=== PATIENT | female | born 1950 | race Caucasian/White ===

== ENCOUNTER → 2017-11-21 16:19 | Outpatient (CLI) | payer OTHER, SELFPAY | PROVIDERS: PCP Internal Medicine; Visit Provider Internal Medicine | DX: Z53.9 Procedure and treatment not carried out, unspecified reason (principal) ==

== ENCOUNTER → 2017-11-21 16:36 | Outpatient (CLI) | payer OTHER, SELFPAY ==
[2017-11-21 17:50] LABS: Add Manual Diff / Slide Review NO; Basophils Percent Auto 0.5 % (0-2); Eosinophils Percent Auto 1.9 % (2-4); Hematocrit 40.9 % (36-46); Hemoglobin 13.7 g/dL (12.0-16.0); Lymphocytes Percent Auto 20.4 % (25-40); Mean Corpuscular HGB Conc 33.6 % (30-36); Mean Corpuscular Hemoglobin 30.1 PG (26-34); Mean Corpuscular Volume 89.6 fL (80-100); Monocytes Percent Auto 11.1 % (3-14); Neutrophils Absolute Auto 2900 /uL (3000-5900); Neutrophils Percent Auto 66.1 % (50-75); Platelet Count 206 X10^3/uL (150-400); Red Blood Cell Count 4.56 X10^6/uL (4.0-5.2); Red Cell Distribution Width 14.6 % (11.6-14.8); White Blood Cell Count 4.4 X10^3/uL (4.5-11.0)
[2017-11-21 17:58] LABS: Alanine Aminotransferase 30 IU/L (9-52); Albumin 4.6 g/dL (3.5-5.0); Albumin Globulin Ratio 1.2 (1.0-2.8); Alkaline Phosphatase 80 U/L (38-126); Aspartate Aminotransferase 28 IU/L (14-36); BUN Creatinine Ratio 18.8 (6-22); Bilirubin Total 0.7 mg/dL (0.2-1.3); Blood Urea Nitrogen 15 mg/dL (7-17); C-Reactive Protein Quant < 0.5 mg/dL (<1.0); Calcium 9.6 mg/dL (8.4-10.2); Carbon Dioxide 32 mmol/L (22-32); Chloride 98 mmol/L (98-107); Estimated Glomerular Filt Rate > 60.0 mL/min (>60); Globulin 3.8 g/dL (1.7-4.1); Glucose 91 mg/dL (80-110); HEMOLYSIS 15 (0-50); Potassium 3.5 mmol/L (3.4-5.1); Sodium 140 mmol/L (137-145); Total Protein 8.4 g/dL (6.3-8.2)
[2017-11-21 18:18] LABS: Free T4, Direct Thyroxine 0.99 ng/dL (0.78-2.19)
[2017-11-21 18:32] LABS: Thyroid Stimulating Hormone 7.52 uIU/mL (0.47-4.68)
== END ==
PROVIDERS: PCP Internal Medicine; Visit Provider Internal Medicine
DX: E89.0 Postprocedural hypothyroidism (principal); I10 Essential (primary) hypertension; K52.9 Noninfective gastroenteritis and colitis, unspecified
CPT/HCPCS: 36415; 80053; 84439; 84443; 85025; 86140

== ENCOUNTER → 2017-11-22 11:57 | Outpatient (CLI) | payer OTHER, SELFPAY ==
[2017-11-22 14:00] LABS: Adenovirus F 40/41 Not Detected (Not Detect); Astrovirus Not Detected (Not Detect); Campylobacter Not Detected (Not Detect); Clostridium difficile toxin AB Not Detected (Not Detect); Cryptosporidium Not Detected (Not Detect); Cyclospora cayetanensis Not Detected (Not Detect); Entamoeba histolytica Not Detected (Not Detect); Enteroaggregative E.coli Not Detected (Not Detect); Enteropathogenic E.coli Not Detected (Not Detect); Enterotoxigenic E.coli It/st Not Detected (Not Detect); Giardia lamblia Not Detected (Not Detect); Norovirus GI/GII Not Detected (Not Detect); Plesiomonsa shigelloides Not Detected (Not Detect); Rotavirus A Not Detected (Not Detect); Salmonella Not Detected (Not Detect); Shiga-like toxin-prod E.coli Not Detected (Not Detect); Shigella/Enteroinvasive E.coli Not Detected (Not Detect); Vibrio Not Detected (Not Detect); Vibrio cholerae Not Detected (Not Detect); Yersinia enterocolitica Not Detected (Not Detect)
== END ==
PROVIDERS: PCP Internal Medicine; Visit Provider Internal Medicine
DX: E89.0 Postprocedural hypothyroidism (principal); I10 Essential (primary) hypertension; K52.9 Noninfective gastroenteritis and colitis, unspecified
CPT/HCPCS: 87507

== ENCOUNTER → 2018-05-28 10:25 | Outpatient (CLI) | payer OTHER, SELFPAY ==
[2018-05-28 11:30] LABS: Alanine Aminotransferase 35 IU/L (9-52); Albumin 4.6 g/dL (3.5-5.0); Albumin Globulin Ratio 1.2 (1.0-2.8); Alkaline Phosphatase 69 U/L (38-126); Aspartate Aminotransferase 29 IU/L (14-36); BUN Creatinine Ratio 18.8 (6-22); Bilirubin Total 0.4 mg/dL (0.2-1.3); Blood Urea Nitrogen 15 mg/dL (7-17); Calcium 9.7 mg/dL (8.4-10.2); Carbon Dioxide 29 mmol/L (22-32); Chloride 92 mmol/L (98-107); Estimated Glomerular Filt Rate > 60.0 mL/min (>60); Globulin 3.7 g/dL (1.7-4.1); Glucose 93 mg/dL (80-110); HEMOLYSIS < 15 (0-50); Potassium 3.7 mmol/L (3.4-5.1); Sodium 134 mmol/L (137-145); Total Protein 8.3 g/dL (6.3-8.2)
[2018-05-28 12:46] LABS: TSH w/ Reflex to FT4 0.24 uIU/mL (0.47-4.68)
[2018-05-28 13:16] LABS: Free T4, Direct Thyroxine 1.24 ng/dL (0.78-2.19)
== END ==
PROVIDERS: PCP Internal Medicine; Visit Provider Internal Medicine
DX: E89.0 Postprocedural hypothyroidism (principal); I10 Essential (primary) hypertension; K52.9 Noninfective gastroenteritis and colitis, unspecified
CPT/HCPCS: 36415; 80053; 84439; 84443

== ENCOUNTER → 2018-06-19 09:28 | Outpatient (CLI) | payer OTHER, SELFPAY ==
--- NOTE | 2018-06-19 | DI.MG.S_ITS ---
BILATERAL DIGITAL SCREENING MAMMOGRAM 3D/2D WITH CAD: 06/19/2018 CLINICAL: Routine screening. Personal history of bilateral breast cancer. Family history of breast cancer. Comparison is made to exams dated: 06/18/2017 mammogram, 03/14/2016 mammogram, and 03/09/2015 mammogram - [facility]. There are scattered fibroglandular elements in both breasts. Current study was also evaluated with a Computer Aided Detection (CAD) system. There are benign post operative findings in both breasts. There also are benign calcifications in both breasts. No significant masses, calcifications, or other findings are seen in either breast. There has been no significant interval change. IMPRESSION: There is no mammographic evidence of malignancy. A 1 year screening mammogram is recommended. This exam was interpreted at Station ID: [id number]. NOTE: For mammograms, a report in lay terms will be sent to the patient. Approximately 15% of breast malignancies will not be visualized mammographically. In the management of a palpable breast mass, a negative mammogram must not discourage biopsy of a clinically suspicious lesion. Electronically Signed By: Drew hernandez/kendrick:06/19/2018 11:59:35 letter sent: Normal Exam ACR BI-RADS Category 2: Benign Finding(s) 3342F
== END ==
PROVIDERS: PCP Internal Medicine
DX: Z12.31 Encounter for screening mammogram for malignant neoplasm of breast (principal); Z85.3 Personal history of malignant neoplasm of breast; Z80.3 Family history of malignant neoplasm of breast
CPT/HCPCS: 77063; 77067

== ENCOUNTER → 2019-09-04 11:09 | Outpatient (CLI) | payer OTHER, SELFPAY ==
--- NOTE | 2019-09-04 | DI.MG.S_ITS ---
BILATERAL DIGITAL SCREENING MAMMOGRAM 3D/2D WITH CAD POST LUMPECTOMY: 09/04/2019 CLINICAL: Routine screening. History of breast cancer. Comparison is made to exams dated: 06/19/2018 mammogram, 06/18/2017 mammogram, and 03/14/2016 mammogram - [facility]. There are scattered fibroglandular elements in both breasts. Current study was also evaluated with a Computer Aided Detection (CAD) system. There are benign calcifications in both breasts. There also are benign post operative findings in both breasts. No significant masses, calcifications, or other findings are seen in either breast. There has been no significant interval change. IMPRESSION: There is no mammographic evidence of malignancy. A 1 year screening mammogram is recommended. This exam was interpreted at Station ID: [id number]. NOTE: For mammograms, a report in lay terms will be sent to the patient. Approximately 15% of breast malignancies will not be visualized mammographically. In the management of a palpable breast mass, a negative mammogram must not discourage biopsy of a clinically suspicious lesion. Electronically Signed By: Drew hernandez/kendrick:09/07/2019 08:58:21 copy to: Corey Simental letter sent: Normal Exam ACR BI-RADS Category 2: Benign Finding(s) 3342F
== END ==
PROVIDERS: PCP Internal Medicine; Referring Provider Internal Medicine; Visit Provider Internal Medicine
DX: Z12.31 Encounter for screening mammogram for malignant neoplasm of breast (principal); Z85.3 Personal history of malignant neoplasm of breast
CPT/HCPCS: 77063; 77067

== ENCOUNTER → 2019-12-17 14:15 | Outpatient (CLI) | payer OTHER, SELFPAY ==
[2019-12-17 16:04] LABS: Add Manual Diff / Slide Review NO; Basophils Absolute Auto 0 /uL (0-100); Basophils Percent Auto 0.8 % (0-2); Eosinophils Absolute Auto 100 /uL (0-450); Eosinophils Percent Auto 2.4 % (2-4); Hematocrit 37.8 % (36-46); Hemoglobin 12.5 g/dL (12.0-16.0); Lymphocytes Absolute Auto 1400 /uL (1100-4500); Lymphocytes Percent Auto 27.7 % (25-40); Mean Corpuscular Hemoglobin 30.7 PG (26-34); Monocytes Absolute Auto 600 /uL (0-900); Monocytes Percent Auto 11.7 % (3-14); Neutrophils Absolute Auto 2800 /uL (1500-7000); Neutrophils Percent Auto 57.4 % (50-75); Platelet Count 198 X10^3/uL (150-400); Red Blood Cell Count 4.06 X10^6/uL (4.0-5.2); Red Cell Distribution Width 13.4 % (11.6-14.8); White Blood Cell Count 4.9 X10^3/uL (4.5-11.0)
[2019-12-17 16:34] LABS: Alanine Aminotransferase 28 IU/L (<35); Albumin 4.3 g/dL (3.5-5.0); Albumin Globulin Ratio 1.2 (1.0-2.8); Alkaline Phosphatase 64 U/L (38-126); Aspartate Aminotransferase 29 IU/L (14-36); BUN Creatinine Ratio 29.3 (6-22); Bilirubin Total 0.3 mg/dL (0.2-1.3); Blood Urea Nitrogen 24 mg/dL (7-17); Calcium 9.7 mg/dL (8.4-10.2); Carbon Dioxide 33 mmol/L (22-32); Chloride 99 mmol/L (98-107); Estimated Glomerular Filt Rate > 60.0 mL/min (>60); Globulin 3.5 g/dL (1.7-4.1); Glucose 108 mg/dL (80-110); HEMOLYSIS < 15 (0-50); Potassium 4.2 mmol/L (3.4-5.1); Sodium 139 mmol/L (137-145); Total Protein 7.8 g/dL (6.3-8.2)
[2019-12-17 16:38] LABS: C-Reactive Protein Quant < 0.5 mg/dL (<1.0)
[2019-12-17 16:51] LABS: Free T4, Direct Thyroxine 0.98 ng/dL (0.78-2.19)
[2019-12-17 16:54] LABS: Erythrocyte Sedimentation Rate 19 MM/HR (0-20)
[2019-12-17 17:05] LABS: Thyroid Stimulating Hormone 8.67 uIU/mL (0.47-4.68)
== END ==
PROVIDERS: PCP Internal Medicine; Referring Provider Internal Medicine; Visit Provider Internal Medicine
DX: E89.0 Postprocedural hypothyroidism (principal); I10 Essential (primary) hypertension
CPT/HCPCS: 36415; 80053; 84439; 84443; 85025; 85651; 86140

== ENCOUNTER → 2020-02-16 10:16 | Outpatient (CLI) | payer OTHER, SELFPAY ==
[2020-02-16 11:29] LABS: Free T4, Direct Thyroxine 1.21 ng/dL (0.78-2.19)
[2020-02-16 11:43] LABS: Thyroid Stimulating Hormone 1.04 uIU/mL (0.47-4.68)
== END ==
PROVIDERS: PCP Internal Medicine; Referring Provider Internal Medicine; Visit Provider Internal Medicine
DX: E89.0 Postprocedural hypothyroidism (principal)
CPT/HCPCS: 36415; 84439; 84443

== ENCOUNTER → 2020-09-22 14:01 | Outpatient (CLI) | payer OTHER, SELFPAY ==
--- NOTE | 2020-09-22 | DI.MG.S_ITS ---
BILATERAL DIGITAL SCREENING MAMMOGRAM 3D/2D WITH CAD: 09/22/2020 CLINICAL: Routine screening. Personal history of bilateral breast cancer. Family history of breast cancer. Comparison is made to exams dated: 09/04/2019 mammogram, 06/19/2018 mammogram, and 06/18/2017 mammogram - [facility]. There are scattered fibroglandular elements in both breasts. Current study was also evaluated with a Computer Aided Detection (CAD) system. There are benign calcifications in both breasts. There also are benign post operative findings in both breasts. No significant masses, calcifications, or other findings are seen in either breast. There has been no significant interval change. IMPRESSION: BENIGN There is no mammographic evidence of malignancy. A 1 year screening mammogram is recommended. This exam was interpreted at Station ID: [id number]. NOTE: For mammograms, a report in lay terms will be sent to the patient. Approximately 15% of breast malignancies will not be visualized mammographically. In the management of a palpable breast mass, a negative mammogram must not discourage biopsy of a clinically suspicious lesion. Electronically Signed By: Drew hernandez/kendrick:09/22/2020 14:55:07 copy to: Corey Simental letter sent: Normal Exam ACR BI-RADS Category 2: Benign Finding(s) 3342F
== END ==
PROVIDERS: PCP Internal Medicine; Referring Provider Internal Medicine; Visit Provider Internal Medicine
DX: Z12.31 Encounter for screening mammogram for malignant neoplasm of breast (principal); Z85.3 Personal history of malignant neoplasm of breast; Z80.3 Family history of malignant neoplasm of breast
CPT/HCPCS: 77063; 77067

== ENCOUNTER → 2021-09-01 08:20 | Outpatient (CLI) | payer OTHER, SELFPAY ==
[2021-09-01 10:32] LABS: Thyroid Stimulating Hormone 0.041 uIU/mL (0.47-4.68)
[2021-09-01 10:36] LABS: Alanine Aminotransferase 19 IU/L (<35); Aspartate Aminotransferase 25 IU/L (14-36); BUN Creatinine Ratio 21.5 (6-22); Bilirubin Total 0.5 mg/dL (0.2-1.3); Blood Urea Nitrogen 14 mg/dL (7-17); Calcium 9.2 mg/dL (8.4-10.2); Carbon Dioxide 27 mmol/L (22-32); Chloride 100 mmol/L (98-107); Estimated Glomerular Filt Rate > 60 mL/min (>60); Glucose 97 mg/dL (80-110); Potassium 4.1 mmol/L (3.4-5.1); Sodium 136 mmol/L (137-145); Total Protein 7.5 g/dL (6.3-8.2)
[2021-09-01 10:37] LABS: Albumin 3.9 g/dL (3.5-5.0); Albumin Globulin Ratio 1.1 (1.0-2.8); Alkaline Phosphatase 59 U/L (38-126); Cholesterol 162 mg/dL (140-199); Globulin 3.6 g/dL (1.7-4.1); HDL Cholesterol 73 mg/dL (40-60); HEMOLYSIS < 15 (0-50); LDL Cholesterol Calculated 78 mg/dL (<100); Triglycerides 54 mg/dL (35-150)
[2021-09-03 15:33] LABS: Free T3, Triiodothyronine Free 3.42 pg/mL (2.77-5.27); Free T4, Direct Thyroxine 1.69 ng/dL (0.78-2.19)
== END ==
PROVIDERS: PCP Internal Medicine; Referring Provider Internal Medicine; Visit Provider Internal Medicine
DX: E89.0 Postprocedural hypothyroidism (principal); I10 Essential (primary) hypertension; K52.9 Noninfective gastroenteritis and colitis, unspecified
CPT/HCPCS: 36415; 80053; 80061; 84439; 84443; 84481

== ENCOUNTER → 2021-10-14 09:10 | Outpatient (CLI) | payer OTHER, SELFPAY ==
--- NOTE | 2021-10-14 09:10 | DI.MG.S_ITS ---
BILATERAL DIGITAL SCREENING MAMMOGRAM 3D/2D WITH CAD: 10/14/2021 CLINICAL: Routine screening. Personal history of bilateral breast cancer. Family history of breast cancer. Comparison is made to exams dated: 09/22/2020 mammogram, 09/04/2019 mammogram, and 06/19/2018 mammogram - [facility]. There are scattered fibroglandular elements in both breasts. Current study was also evaluated with a Computer Aided Detection (CAD) system. There are benign calcifications in both breasts. There also are benign post operative findings in both breasts. No significant masses, calcifications, or other findings are seen in either breast. There has been no significant interval change. IMPRESSION: BENIGN There is no mammographic evidence of malignancy. A 1 year screening mammogram is recommended. This exam was interpreted at Station ID: [id number]. NOTE: For mammograms, a report in lay terms will be sent to the patient. Approximately 15% of breast malignancies will not be visualized mammographically. In the management of a palpable breast mass, a negative mammogram must not discourage biopsy of a clinically suspicious lesion. Electronically Signed By: Stefano Pardo M.D., jr/kendrick:10/16/2021 12:57:26 copy to: Corey Simental letter sent: Normal Exam ACR BI-RADS Category 2: Benign Finding(s) 3342F
== END ==
PROVIDERS: PCP Internal Medicine; Referring Provider Internal Medicine; Visit Provider Internal Medicine
DX: Z12.31 Encounter for screening mammogram for malignant neoplasm of breast (principal); Z85.3 Personal history of malignant neoplasm of breast; Z80.3 Family history of malignant neoplasm of breast
CPT/HCPCS: 77063; 77067

== ENCOUNTER → 2022-04-09 10:14 | Outpatient (CLI) | payer OTHER, SELFPAY ==
--- NOTE | 2022-04-09 10:15 | DI.RAD.S_ITS ---
PROCEDURE: XR HIP W PEL IF DONE RT 2V INDICATIONS: Right hip pain TECHNIQUE: AP pelvis with lateral view(s) of the right hip(s). COMPARISON: None. FINDINGS: Bones: No fractures or dislocations. Pelvic ring appears intact. Mild bilateral hip joint space narrowing. Acetabular roof sclerosis. No suspicious bony lesions. Soft tissues: The visualized bowel gas pattern is normal. No suspicious soft tissue calcifications. IMPRESSION: Mild bilateral hip DJD. Dictated by: Juan F Landaverde M.D. on 04/09/2022 at 12:31 Approved by: Juan F Landaverde M.D. on 04/09/2022 at 12:32
== END ==
PROVIDERS: PCP Internal Medicine; Referring Provider Nurse Practitioner Family; Visit Provider Nurse Practitioner Family
DX: M16.0 Bilateral primary osteoarthritis of hip (principal); M25.551 Pain in right hip
CPT/HCPCS: 73502

== ENCOUNTER → 2022-05-02 10:14 | Outpatient (CLI) | payer OTHER, SELFPAY | PROVIDERS: PCP Internal Medicine; Referring Provider Internal Medicine; Visit Provider Internal Medicine | DX: Z78.0 Asymptomatic menopausal state (principal); M81.0 Age-related osteoporosis without current pathological fracture; Z13.820 Encounter for screening for osteoporosis; Z92.23 Personal history of estrogen therapy | CPT/HCPCS: 77080 ==

== ENCOUNTER → 2022-11-08 16:23 | Outpatient (CLI) | payer OTHER, SELFPAY ==
[2022-11-08 17:34] LABS: Alanine Aminotransferase 29 IU/L (<35); Albumin 4.5 g/dL (3.5-5.0); Albumin Globulin Ratio 1.1 (1.0-2.8); Alkaline Phosphatase 68 U/L (38-126); Aspartate Aminotransferase 29 IU/L (14-36); BUN Creatinine Ratio 20.8 (6-22); Bilirubin Total 0.3 mg/dL (0.2-1.3); Blood Urea Nitrogen 15 mg/dL (7-17); Calcium 9.5 mg/dL (8.4-10.2); Carbon Dioxide 29 mmol/L (22-32); Chloride 97 mmol/L (98-107); Estimated Glomerular Filt Rate > 60 mL/min (>60); Glucose 94 mg/dL (80-110); HEMOLYSIS < 15 (0-50); Potassium 3.7 mmol/L (3.4-5.1); Sodium 135 mmol/L (137-145); Total Protein 8.5 g/dL (6.3-8.2)
[2022-11-08 17:51] LABS: Free T4, Direct Thyroxine 1.17 ng/dL (0.78-2.19)
[2022-11-08 18:05] LABS: Thyroid Stimulating Hormone 4.97 uIU/mL (0.47-4.68)
[2022-11-10 02:22] LABS: Free T3, Triiodothyronine Free 3.14 pg/mL (2.77-5.27)
== END ==
PROVIDERS: PCP Internal Medicine; Referring Provider Internal Medicine; Visit Provider Internal Medicine
DX: C73 Malignant neoplasm of thyroid gland (principal); E89.0 Postprocedural hypothyroidism; I10 Essential (primary) hypertension
CPT/HCPCS: 80053; 84439; 84443; 84481

== ENCOUNTER → 2022-12-11 13:11 | Outpatient (CLI) | payer OTHER, SELFPAY ==
--- NOTE | 2022-12-11 13:12 | DI.MG.S_ITS ---
BILATERAL DIGITAL DIAGNOSTIC MAMMOGRAM 3D/2D: 12/11/2022 CLINICAL: Breast pain. Breast cancer. Comparison is made to exams dated: 10/14/2021 mammogram, 09/22/2020 mammogram, and 09/04/2019 mammogram - [facility]. There are scattered areas of fibroglandular density in both breasts (category b / 25%-50% glandular tissue). There are stable benign surgical clips, tiny central area of calcified fat necrosis, and post surgical scar in the right breast at 9 o'clock in the posterior depth that correlate with reported pain. There also are stable benign surgical clips, large area of calcified fat necrosis, and post surgical scar in the left breast in the upper outer quadrant. No significant masses, calcifications, or other findings are seen in either breast. No findings to correspond to the left breast skin thickening and discomfort from the lower inner aspect to the left axilla. IMPRESSION: INCOMPLETE: NEEDS ADDITIONAL IMAGING EVALUATION Mammograms are stable bilaterally. There is no abnormality seen in the left breast to correspond with the pain and skin thickening throughout the left breast. No changes to right breast surgical area which is now painful per patient. Ultrasound is recommended for full evaluation of this area. This was performed immediately following this exam. This exam was interpreted at Station ID: [id number]. NOTE: For mammograms, a report in lay terms will be sent to the patient. Approximately 15% of breast malignancies will not be visualized mammographically. In the management of a palpable breast mass, a negative mammogram must not discourage biopsy of a clinically suspicious lesion. Electronically Signed By: Yohana adair/:12/12/2022 11:43:21 Entry: - 12/12/2022 11:43:21 ACR BI-RADS Category 0: Incomplete [id number]
--- NOTE | 2022-12-11 13:12 | DI.US.S_ITS ---
LIMITED ULTRASOUND OF RIGHT BREAST: 12/11/2022 CLINICAL: Diffuse right breast pain. Comparison is made to exams dated: 12/11/2022 mammogram, 10/14/2021 mammogram, 09/22/2020 mammogram, 09/04/2019 mammogram, 06/19/2018 mammogram, and 06/18/2017 mammogram - [facility]. Color flow ultrasound of the right breast 9 o'clock region was performed. Pemberton scale images of the real-time examination were reviewed. Expected tissue changes of lumpectomy site and scarring in the 9:00 right breast posterior depth at the are of indicated pain. No fluid collections or suspicious masses. No findings in the right axilla. IMPRESSION: NEGATIVE Other than stable, chronic surgical change, there is no sonographic correlate to the patient's pain and no evidence of malignancy. Return to annual mammogram screening schedule is recommended. Findings and recommendations were conveyed to the patient at time of exam. This exam was interpreted at Station ID: [id number]. Electronically Signed By: Yohana adair/:12/11/2022 15:07:05 letter sent: Normal Exam Ultrasound BI-RADS: 1 Negative
== END ==
PROVIDERS: PCP Internal Medicine; Referring Provider Internal Medicine; Visit Provider Internal Medicine
DX: R92.2 Inconclusive mammogram; N64.4 Mastodynia; Z85.3 Personal history of malignant neoplasm of breast
CPT/HCPCS: 76642; 77066; G0279

== ENCOUNTER → 2023-07-04 16:49 | Outpatient (CLI) | payer OTHER, SELFPAY ==
--- NOTE | 2023-07-04 16:51 | DI.RAD.S_ITS ---
PROCEDURE: XR THORACIC SPINE 3V INDICATIONS: back pain TECHNIQUE: 3 views of the thoracic spine were acquired. COMPARISON: None. FINDINGS: Bones: No fractures or dislocations. No suspicious bony lesions. 12 pairs of ribs are noted, and appear intact where visualized. Multilevel degenerative disc space narrowing is present with small anterior osteophytes. Soft tissues: No paravertebral stripe thickening. IMPRESSION: Multilevel degenerative disc space narrowing. Dictated by: Betzaida Blanchard M.D. on 07/05/2023 at 13:58 Approved by: Betzaida Blanchard M.D. on 07/05/2023 at 14:00
--- NOTE | 2023-07-04 16:51 | DI.RAD.S_ITS ---
PROCEDURE: XR CHEST 2V INDICATIONS: cough TECHNIQUE: 2 views of the chest were acquired. COMPARISON: [facility], , CHEST 2 VIEW, 04/07/2015, 10:02. FINDINGS: Surgical changes and devices: None. Lungs and pleura: Focal calcification-developed since 2016 overlying the left base. Mediastinum: Mediastinal contours are normal. Heart size is normal. Bones and chest wall: No suspicious bony abnormalities. Soft tissues appear unremarkable. IMPRESSION: Calcification overlying the right base compared to prior exam. Etiology is indeterminate on the basis of this exam. It is noted does not appear to be consistent with standard calcified granuloma. This may be related to focus of infection or inflammation. Further evaluation with CT is recommended. Dictated by: Betzaida Blanchard M.D. on 07/05/2023 at 13:52 Approved by: Betzaida Blanchard M.D. on 07/05/2023 at 13:58
[2023-07-04 17:57] LABS: Add Manual Diff / Slide Review NO; Basophils Absolute Auto 0 /uL (0-100); Basophils Percent Auto 0.6 % (0-2); Eosinophils Absolute Auto 100 /uL (0-450); Hemoglobin 11.3 g/dL (12.0-16.0); Lymphocytes Absolute Auto 1600 /uL (1100-4500); Lymphocytes Percent Auto 34.5 % (25-40); Mean Corpuscular HGB Conc 33.3 % (30-36); Mean Corpuscular Hemoglobin 30.2 PG (26-34); Mean Corpuscular Volume 90.6 fL (80-100); Monocytes Absolute Auto 500 /uL (0-900); Monocytes Percent Auto 10.4 % (3-14); Neutrophils Absolute Auto 2500 /uL (1500-7000); Neutrophils Percent Auto 52.5 % (50-75); Platelet Count 228 X10^3/uL (150-400); Red Blood Cell Count 3.75 X10^6/uL (4.0-5.2); Red Cell Distribution Width 13.9 % (11.6-14.8); White Blood Cell Count 4.7 X10^3/uL (4.5-11.0)
[2023-07-04 18:12] LABS: Alanine Aminotransferase 42 IU/L (<35); Albumin 4.5 g/dL (3.5-5.0); Albumin Globulin Ratio 1.2 (1.0-2.8); Alkaline Phosphatase 61 U/L (38-126); Aspartate Aminotransferase 32 IU/L (14-36); Bilirubin Total 0.4 mg/dL (0.2-1.3); Blood Urea Nitrogen 21 mg/dL (7-17); Calcium 9.4 mg/dL (8.4-10.2); Carbon Dioxide 30 mmol/L (22-32); Chloride 100 mmol/L (98-107); Estimated Glomerular Filt Rate > 60 mL/min (>60); Globulin 3.9 g/dL (1.7-4.1); Glucose 93 mg/dL (80-110); HEMOLYSIS 15 (0-50); Potassium 3.5 mmol/L (3.4-5.1); Sodium 137 mmol/L (137-145); Total Protein 8.4 g/dL (6.3-8.2)
== END ==
LOC: RAD 16:50
PROVIDERS: PCP Internal Medicine; Referring Provider Internal Medicine; Visit Provider Internal Medicine
DX: M48.04 Spinal stenosis, thoracic region (principal); R05.9 Cough, unspecified; R06.00 Dyspnea, unspecified; M54.9 Dorsalgia, unspecified
CPT/HCPCS: 36415; 71046; 72072; 80053; 84443; 85025

== ENCOUNTER → 2023-07-16 08:58 | Outpatient (CLI) | payer OTHER, SELFPAY ==
--- NOTE | 2023-07-16 09:00 | DI.CT.S_ITS ---
PROCEDURE: CT CHEST W CON INDICATIONS: Abnormal Chest Xray TECHNIQUE: After the administration of intravenous contrast, 5 mm thick sections acquired from the pulmonary apices to the posterior costophrenic angles. 1 mm axial lung, 5 mm thick coronal and sagittal reformats and 7 mm axial MIP were acquired. For radiation dose reduction, the following was used: automated exposure control, adjustment of mA and/or kV according to patient size. COMPARISON: [facility], , XR CHEST 2V, 07/04/2023, 16:57. FINDINGS: Image quality: Diagnostic. Lower Neck: No enlarged lymph nodes. Thyroid: Thyroidectomy Axillae: No enlarged lymph nodes. Chest Wall: Corresponding with the prior chest x-ray and prior mammogram 12/11/2012, there is of ovoid peripherally calcified necrosis in the left breast associated with prior lumpectomy and surgical clips in the left axilla. Bones: T4 wedge-shaped pathologic compression fracture with large paravertebral soft tissue component as well as large ventral epidural soft tissue component resulting in severe central stenosis. Lungs and Pleura: No pneumothorax or pleural effusions. No consolidation or suspicious nodules. Heart: Heart size is normal. No pericardial effusion. Thoracic Vessels: The aorta and pulmonary arteries demonstrate normal size. Mediastinum and Amry: No enlarged lymph nodes. Esophagus: No wall thickening. No hiatal hernia. Upper Abdomen: Visualized upper abdomen solid organs and bowel loops appear normal. IMPRESSION: Pathologic T4 compression fracture with large soft tissue component extending into the ventral epidural space results in severe central stenosis and deformity of the thoracic cord. Advise follow-up MR thoracic spine with contrast. Calcified lesion on the prior chest x-ray corresponds fat necrosis in the left breast as noted on the prior mammogram 2022 Approved by: Rodrigo Lay M.D. on 07/16/2023 at 12:00
== END ==
PROVIDERS: PCP Internal Medicine; Referring Provider Internal Medicine; Visit Provider Internal Medicine
DX: M48.54XA Collapsed vertebra, not elsewhere classified, thoracic region, initial encounter for fracture (principal); R05.9 Cough, unspecified; R06.00 Dyspnea, unspecified; N64.1 Fat necrosis of breast
CPT/HCPCS: 71260; Q9967

== ENCOUNTER 2023-07-16 17:42 | Emergency (ER) | payer OTHER, SELFPAY ==
[2023-07-16 17:56] VITALS: BP 183/86; PULSE 90; RESP 14; TEMP 37.3; O2SAT 97; BMI 28.3
[2023-07-16 20:49] VITALS: BP 185/87; PULSE 83; O2SAT 97
--- NOTE | 2023-07-16 21:09 | ED_ITS ---
HPI - Back Pain/Injury General Chief Complaint: Back Pain/Injury Stated Complaint: states Dr ordered MRI thru ER Time Seen by Provider: 07/16/23 18:05 Source: patient History of Present Illness HPI Narrative: Patient is a 73-year-old female who in March slipped on some ice and since that time has had mid back discomfort. She stated that she has been dealing with it for the past several months. She recently had x-rays and a CT scan done today. She was called by her doctor today to come to the emergency department for an MRI with expectations being admitted to the hospital and potential surgery. He states that she is having discomfort but is the same discomfort that she has had since March. No bowel or bladder symptoms. No fevers. She does take Tylenol. She states she still has some discomfort with this does seem to be helping her symptoms quite a bit. She denies chest pain. No abdominal pain nausea vomiting. Related Data Home Medications Medication Instructions Recorded Confirmed ascorbic acid (vitamin C) 500 mg mg PO 06/02/18 07/04/23 capsule biotin 5,000 mcg sublingual tablet 5,000 mcg sublingual DAILY 06/02/18 07/04/23 cyanocobalamin (vitamin B-12) 1,000 mcg PO DAILY 06/02/18 07/04/23 1,000 mcg capsule ginko PO 06/02/18 07/04/23 glucosamine-chondroitin PO 06/02/18 07/04/23 vitamin B complex 1 tab PO DAILY 06/02/18 07/04/23 calcium carb and hydrox 112 1 tab PO BEDTIME 01/02/19 07/04/23 [id number] cohosh-melatonin 2 mg tablet (Estroven Nighttime (with calcium-melatonin)) diclofenac sodium 1 % topical gel 2 g topical .BID - TID PRN 04/19/22 07/04/23 (Voltaren Arthritis Pain) melatonin 10 mg capsule 10 mg PO BEDTIME PRN 07/04/23 07/04/23 Previous Rx's Medication Instructions Recorded albuterol sulfate 90 mcg/actuation 2 puff inhalation Q6H PRN 07/18/21 aerosol inhaler shortness of breath or wheezing #8.5 grams lisinopril 40 mg tablet 40 mg PO DAILY #90 tabs 09/28/22 hydrochlorothiazide 25 mg tablet 25 mg PO DAILY #90 tabs 11/01/22 levothyroxine 100 mcg tablet 100 mcg PO DAILY #90 tabs 11/05/22 oxybutynin chloride 10 mg 10 mg PO DAILY #90 tabs 04/23/23 tablet,extended release 24 hr Allergies Allergy/AdvReac Type Severity Reaction Status Date / Time cephalexin Allergy Mild RASH/SOB Verified 07/16/23 17:56 ciprofloxacin Allergy Mild RASH/SOB Verified 07/16/23 17:56 erythromycin base Allergy Mild RASH/SOB Verified 07/16/23 17:56 [facility] hydrocodone Allergy Mild RASH/SOB Verified 07/16/23 17:56 Penicillins Allergy Mild RASH/SOB Verified 07/16/23 17:56 Sulfa (Sulfonamide Allergy Mild RASH/SOB Verified 07/16/23 17:56 Antibiotics) tetracycline Allergy Mild anaphylaxis Verified 07/16/23 17:56 clindamycin [CLINDAMYCIN] Allergy Unknown HIVES Verified 07/16/23 17:56 Review of Systems Review of Systems ROS Unobtainable: All systems reviewed & are unremarkable except as noted in HPI and below Patient History Medical History Osteopenia after menopause Urinary incontinence Personal history of breast cancer Recurrent seroma of breast (~10/2015) Breast cancer, left breast (03/2015) Genital warts (~1989) Abnormal Pap smear of cervix (~1989) Anemia (~1970) Chicken pox (~1960) Measles (~1960) Mumps (~1960) Osteopenia (2004) Anxiety (2012) Depression (2012) Breast cancer, right breast (1994) 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, estrogen receptor positive (04/26/17) Dyspareunia in female (04/26/17) Malignant neoplasm of thyroid gland (11/16/10) Essential hypertension (11/16/10) Postoperative hypothyroidism (11/16/10) Colitis Surgical History Status post left breast lumpectomy (05/24/15) History of colonoscopy (02/23/16) Normal colonoscopy (08/19/06) Anesthesia History of thyroidectomy (2004) Status post breast lumpectomy (1994) Family History Brother Age: 65 Hepatitis C Liver failure Father Heart disease Hypertension High cholesterol Mother Age: 90 Heart disease Hypertension High cholesterol Sister Age: 69 Osteoporosis Sister Cancer Breast cancer Brother No problems noted. Grandfather Emphysema of lung Grandmother No problems noted. Grandfather Emphysema of lung Grandmother No problems noted. 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[employer]: None travel history: recent leisure activities: exercise, reading and other Smoking Status: Unknown if ever smoked Tobacco: How many years used: 0 quit status: quit date established second hand exposure: Yes (Sig, Other smokes.) alcohol intake: current substance use type: marijuana Smoking Status: Unknown if ever smoked alcohol intake frequency: 0-2 drinks per day Substance Use Type: marijuana Exam Initial Vital Signs Initial Vital Signs: Vital Signs Temperature 99.1 F 07/16/23 17:56 Pulse Rate 90 07/16/23 17:56 Respiratory Rate 14 07/16/23 17:56 Blood Pressure 183/86 H 07/16/23 17:56 Pulse Oximetry 97 07/16/23 17:56 Oxygen Delivery Method Room Air 07/16/23 17:56 HENMT Head: normal to inspection and normocephalic Resp Effort & Inspection: normal respiratory effort Auscultation: clear to auscultation bilaterally Cardio Rate: regular rate Rhythm: regular rhythm Back/Spine/Pelvis Thoracic/Lumbar Spine: thoracic spinal tenderness and No lumbar spinal tenderness Neuro General: patient alert, patient awake and moves all extremities Course Vital Signs Vital signs: Vital Signs - 8 hr 07/16/23 20:49 Pulse Rate 83 Blood Pressure 185/87 H Pulse Oximetry 97 Oxygen Delivery Method Room Air MDM - Back Pain/Injury Medical Records Attestation: I reviewed the patient's medical records. MDM Narrative Medical decision making narrative: I did review her chest CT earlier today. She does have a T4 compression fracture. There is some surrounding soft tissue changes. She has a history of breast cancer and thyroid cancer. I suspect that her primary doctor wanted her to come to the emergency department for concerns that this was a pathologic fracture and this was maybe a metastatic change. I did discuss the case with Dr. Knight the orthopedist on-call who stated that nothing on her CT scan from earlier today would warrant an emergent surgery. I am unable to obtain an MRI given the time of day. I suspect that she will need an MRI and potentially referral for Oncology. It does not appear that this is any lytic lesion. There was no indication for admission to the hospital or mentioned surgery. Will have her contact her primary doctor for follow-up to discuss further evaluation and treatment. Discharge Plan Departure Patient Disposition: Home Clinical Impression: Compression fracture of T4 vertebra Instructions: Vertebral Compression Fracture Activity Restrictions/Additional Instructions: Continue to take all of your medications as directed. You can try lidocaine patches but you can purchase [id number]. I do recommend that tomorrow you contact your primary doctor's office as you will need an MRI for further evaluation. Return to the emergency department for new symptoms. Prescriptions: No Action albuterol sulfate 90 mcg/actuation HFA aerosol inhaler 2 puff inhalation Q6H PRN (Reason: shortness of breath or wheezing) Qty: 8.5 0RF lisinopril 40 mg tablet 40 mg PO DAILY Qty: 90 3RF hydrochlorothiazide 25 mg tablet 25 mg PO DAILY Qty: 90 2RF levothyroxine 100 mcg tablet 100 mcg PO DAILY Qty: 90 2RF oxybutynin chloride 10 mg tablet extended release 24hr 10 mg PO DAILY Qty: 90 3RF melatonin 10 mg capsule 10 mg PO BEDTIME PRN glucosamine-chondroitin PO Patient Comments: 1500/1200 mg vitamin B complex tablet 1 tab PO DAILY cyanocobalamin (vitamin B-12) 1,000 mcg capsule 1,000 mcg PO DAILY ascorbic acid (vitamin C) 500 mg capsule PO ginko 30 mg PO biotin 5,000 mcg tablet, sublingual 5,000 mcg SL DAILY Estroven Nighttime (peyton-meltn) 112-2 mg tablet 1 tab PO BEDTIME Rx Instructions: Taken at bedtime for night sweats. diclofenac sodium [Voltaren Arthritis Pain] 1 % gel 2 g topical .BID - TID PRN Rx Instructions: apply to single elbow, wrist or hand; for hand includes palm/fingers/back of hand Referrals: Anand Montgomery MD [Primary Care Provider] - Stand Alone Forms: Patient Portal/API
== END 2023-07-16 21:29 | disposition home or self-care (01) ==
PROVIDERS: Emergency Provider Emergency Medicine; PCP Internal Medicine; Referring Provider Internal Medicine
DX: S22.049A Unspecified fracture of fourth thoracic vertebra, initial encounter for closed fracture (principal); W00.0XXA Fall on same level due to ice and snow, initial encounter; R05.9 Cough, unspecified; R06.00 Dyspnea, unspecified; N64.1 Fat necrosis of breast
CPT/HCPCS: 71260; 99281; 99283; Q9967

== ENCOUNTER → 2023-07-17 17:02 | Outpatient (CLI) | payer OTHER, SELFPAY ==
--- NOTE | 2023-07-17 17:03 | DI.MRI.S_ITS ---
PROCEDURE: MR THORACIC SPINE WO/W CON INDICATIONS: Pathologic fracture TECHNIQUE: Noncontrast sagittal T1 spin echo and T2 fast spin echo, sagittal STIR, axial T1 and T2 fast spin echo through the thoracic spine. After the administration of contrast, axial and sagittal T1 spin echo with fat saturation through the thoracic spine. COMPARISON: [facility], CR, XR THORACIC SPINE 3V, 07/04/2023, 16:57. [facility], CT, CT CHEST W CON, 07/16/2023, 9:07. FINDINGS: Image quality: This examination is limited by involuntary motion artifact. Alignment and curvature: There is normal bony alignment. Marrow: At the T3 level, there is a significant compression deformity, with 70% loss of height centrally. There is posterior displacement of soft tissue at this level of 7 mm. There is severe central canal narrowing seen at the T3 level, with decompression of the spinal cord, as seen on series 7, image 10 and on series 4, image 8. Abnormally enhancing soft tissue can be seen posterior to the fracture as well as anteriorly and on the right side. Marrow is of normal overall signal. Spinal cord: No definite abnormal signal can be seen within the spinal cord itself at the T3 level or elsewhere. Visualized spinal cord is of normal signal and size, without abnormal enhancement. Paraspinous soft tissues: No paravertebral masses or abnormal enhancement. Miscellaneous: Generalized degenerative changes are seen, without significant neural foraminal narrowing or central canal narrowing seen apart from T3. IMPRESSION: Pathologic fracture at the T3 level, with abnormally enhancing soft tissue posteriorly projected from the fracture as well as anteriorly and on the right-side. There is 70% loss of height anteriorly at this level. No long additional bone marrow abnormalities are seen to suggest additional metastatic involvement. Dictated by: Nithin Guerrero M.D. on 07/17/2023 at 17:40 Approved by: Nithin Guerrero M.D. on 07/17/2023 at 17:48
== END ==
PROVIDERS: PCP Internal Medicine; Referring Provider Internal Medicine; Visit Provider Internal Medicine
DX: M84.48XA Pathological fracture, other site, initial encounter for fracture (principal); S22.040A Wedge compression fracture of fourth thoracic vertebra, initial encounter for closed fracture; Z85.3 Personal history of malignant neoplasm of breast
CPT/HCPCS: 72157; A9579

== ENCOUNTER → 2023-07-18 11:58 | Outpatient (CLI) | payer OTHER, SELFPAY ==
[2023-07-18 13:58] LABS: Carcinoembryonic Antigen 0.9 ng/mL (0.1-3.0)
[2023-07-20 09:19] LABS: Cancer Antigen 27.29 17.8 U/mL (0.0-38.6)
[2023-07-23 12:35] LABS: Alpha-1 Globulin, Ur 4.7 % (.); Beta Globulin, Ur 39.2 % (.); Gamma Globulin, Ur 6.3 % (.); M-Spike % 30.9 % (Not Observed); Urine Total Protein 9.6 mg/dL (Not Estab.)
[2023-07-23 14:56] LABS: Albumin 3.8 g/dL (2.9-4.4); Alpha-1-Globulin 0.2 g/dL (0.0-0.4); Alpha-2-Globulin 0.7 g/dL (0.4-1.0); Gamma Globulin 2.1 g/dL (0.4-1.8); Globulin Total 3.9 g/dL (2.2-3.9); Protein, Total 7.7 g/dL (6.0-8.5)
== END ==
PROVIDERS: PCP Internal Medicine; Referring Provider Internal Medicine; Visit Provider Internal Medicine
DX: C50.211 Malignant neoplasm of upper-inner quadrant of right female breast (principal); M84.48XA Pathological fracture, other site, initial encounter for fracture; C50.212 Malignant neoplasm of upper-inner quadrant of left female breast; Z17.0 Estrogen receptor positive status [ER+]; C73 Malignant neoplasm of thyroid gland
CPT/HCPCS: 36415; 82378; 84155; 84156; 84165; 84166; 86300

== ENCOUNTER → 2023-08-01 09:30 | Outpatient (CLI) | payer OTHER, SELFPAY ==
--- NOTE | 2023-08-01 09:31 | DI.NM.S_ITS ---
PROCEDURE: NM BONE SCAN WHOLE BODY RADIOPHARMACEUTICAL: 20.9 mCi Tc-99m MDP IV. INDICATIONS: path fx thoracic spine TECHNIQUE: Delayed whole-body scintigrams were obtained approximately 3-4 hours after intravenous injection of radiotracer. Anterior and posterior views were acquired from vertex to feet. Additional left and right oblique views of the thoracic spine were obtained. COMPARISON: CT, ABDOMEN/PELVIS WITH CONTRAST, 11/19/2007, 15:51. CT, ABDOMEN/PELVIS WITH CONTRAST, 12/14/2016, 12:51. [facility], CR, XR THORACIC SPINE 3V, 07/04/2023, 16:57. [facility], MR, MR THORACIC SPINE WO/W CON, 07/17/2023, 17:20. [facility], CT, CT CHEST W CON, 07/16/2023, 9:07. FINDINGS: There is abnormal uptake in the area of T3, correlating with pathological fracture seen on the comparison MRI, consistent with metastasis. Foci of increased uptake are also seen in calvarium, suspicious for metastasis. No lesions are identified in sternum, clavicles, scapulae, ribs, bony pelvis, and visualized shafts of the long bones. There are foci of increased uptake in cervical, thoracic and lumbar spine most likely secondary to degenerative disc and facet disease; early metastasis to spine could be obscured by degenerative changes. There are foci of increased periarticular activity most pronounced in shoulders and hips, compatible with degenerative/arthritic changes. IMPRESSION: 1. Foci abnormal osseous uptake involving calvarium and T3 vertebral body, consistent with osseous metastasis. Dictated by: Yasmin Christianson M.D. on 08/01/2023 at 16:55 Approved by: Yasmin Christianson M.D. on 08/02/2023 at 9:16
== END ==
PROVIDERS: PCP Internal Medicine; Referring Provider Internal Medicine; Visit Provider Internal Medicine
DX: C50.211 Malignant neoplasm of upper-inner quadrant of right female breast (principal); C50.212 Malignant neoplasm of upper-inner quadrant of left female breast; C73 Malignant neoplasm of thyroid gland; M84.48XA Pathological fracture, other site, initial encounter for fracture; Z17.0 Estrogen receptor positive status [ER+]
CPT/HCPCS: 78306; A9503

== ENCOUNTER → 2023-12-16 14:51 | Outpatient (CLI) | payer OTHER, SELFPAY ==
--- NOTE | 2023-12-16 | DI.MG.S_ITS ---
BILATERAL DIGITAL SCREENING MAMMOGRAM 3D/2D WITH CAD POST LUMPECTOMY: 12/16/2023 CLINICAL: Routine screening. Personal History of Bilateral Breast Cancer. Family History of Breast Cancer. Comparison is made to exams dated: 12/11/2022 mammogram, 10/14/2021 mammogram, and 09/22/2020 mammogram - [facility]. There are scattered areas of fibroglandular density (category b / 25%-50% glandular tissue). Current study was also evaluated with a Computer Aided Detection (CAD) system. There are benign post operative findings in both breasts. No significant masses, calcifications, or other findings are seen in either breast. There has been no significant interval change. IMPRESSION: BENIGN There is no mammographic evidence of malignancy. A 1 year screening mammogram is recommended. This exam was interpreted at Station ID: [id number]. NOTE: For mammograms, a report in lay terms will be sent to the patient. Approximately 15% of breast malignancies will not be visualized mammographically. In the management of a palpable breast mass, a negative mammogram must not discourage biopsy of a clinically suspicious lesion. Electronically Signed By: Jordon pennington/kendrick:12/17/2023 08:58:15 letter sent: Normal Exam ACR BI-RADS Category 2: Benign
== END ==
PROVIDERS: PCP Internal Medicine; Referring Provider Internal Medicine; Visit Provider Internal Medicine
DX: Z12.31 Encounter for screening mammogram for malignant neoplasm of breast (principal); Z85.3 Personal history of malignant neoplasm of breast; Z80.3 Family history of malignant neoplasm of breast
CPT/HCPCS: 77063; 77067

== ENCOUNTER → 2024-11-20 16:12 | Outpatient (CLI) | payer OTHER, SELFPAY ==
[2024-11-20 17:22] LABS: Free T4, Direct Thyroxine 1.71 ng/dL (0.78-2.19)
[2024-11-20 17:24] LABS: Alanine Aminotransferase 30 IU/L (<35); Albumin 4.9 g/dL (3.5-5.0); Albumin Globulin Ratio 2.6 (1.0-2.8); Alkaline Phosphatase 50 U/L (38-126); Blood Urea Nitrogen 27 mg/dL (7-17); Calcium 9.4 mg/dL (8.4-10.2); Carbon Dioxide 25 mmol/L (22-32); Chloride 84 mmol/L (98-107); Estimated Glomerular Filt Rate 49 mL/min (>60); Globulin 1.9 g/dL (1.7-4.1); Glucose 93 mg/dL (70-99); HEMOLYSIS < 15 (0-50); Potassium 3.8 mmol/L (3.4-5.1); Total Protein 6.8 g/dL (6.3-8.2)
[2024-11-20 17:34] LABS: Sodium 120 mmol/L (137-145)
[2024-11-20 17:36] LABS: Thyroid Stimulating Hormone 10.4 uIU/mL (0.47-4.68)
== END ==
PROVIDERS: PCP Internal Medicine; Referring Provider Internal Medicine; Visit Provider Internal Medicine
DX: E89.0 Postprocedural hypothyroidism (principal); I10 Essential (primary) hypertension
CPT/HCPCS: 36415; 80053; 84439; 84443

== ENCOUNTER → 2024-12-23 13:04 | Outpatient (CLI) | payer OTHER, SELFPAY ==
--- NOTE | 2024-12-25 14:43 | DIET.OUTPTC ---
Dietary Outpatient Consult Consult Date:12/23/24 Assessment:?74 y F referred to dietitian for abnormal weight loss. Pt with hx of multiple myeloma with stem cell replacement this past Mar. Consequently has weight loss, was back 129# on 11/13/24, went down to 119# on 12/01/24 (-7.75% loss in 1 month, severe), and now is back to 129# today. Would like to be 140#. Pt takes weight daily. Ate sweets/ice cream over past month to help with weight regain. Reports her oncologist wants her to monitor weight and see a dietitian. Pt is monitoring daily and recorded PO intakes as well. These were reviewed. 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 Diet recall in [employer] reviewed, days between [id number] calories and around 60 g protein in last month Doesn't want to change current meal pattern 11/20/2514:33 Height 5 ft 3 in Weight 131 lb 8 oz BMI 23.3 Activity:indoor self led exercises cardio and strength and balance from what in home Pt taught pt Nutrition Diagnosis:? Unintentional weight loss r/t decreased appetite and energy and increased calorie needs on chemo aeb -8% weight loss in 1 month (severe) Interventions:? Discussed and provided appropriate resources on the following: -Calorie and protein needs for weight gain and weight maintenance -Assess weight loss/monitoring weight -Caloric and protein dense foods -ONS as needed -Healthy fats vs saturated fats Goals: -Pt plans to decrease sweet intake and use fruit and healthy fats instead -Will continue to monitor weight, can monitor weekly EER:? MSJ [id number], 60-75 g protein (1-1.2 g/kg desired weight per age and chemo) Monitoring/Evaluations:? F/u in PRN Electronically Signed by: Elana Montanez Clinical Dietitian [address] [id number]
== END ==
PROVIDERS: PCP Internal Medicine; Referring Provider Internal Medicine
DX: R63.4 Abnormal weight loss (principal); C90.01 Multiple myeloma in remission; Z71.3 Dietary counseling and surveillance; Z68.23 Body mass index [BMI] 23.0-23.9, adult
CPT/HCPCS: 97802

== ENCOUNTER → 2024-12-25 14:30 | Outpatient (CLI) | payer OTHER, SELFPAY ==
--- NOTE | 2024-12-25 14:31 | DI.MG.S_ITS ---
MM screening mammo BI: 12/25/2024. BI-RADS: 2 CLINICAL: 74-year old female for bilateral screening mammogram. No Tyrer-Cuzick risk score calculation due to the patient's personal history of breast cancer. Patient reports a history of bilateral breast carcinoma diagnosed at age 62. Status-post bilateral lumpectomies with radiation therapy. Current reported family history of breast cancer: sister. The patient had prior bilateral breast biopsies. PRIOR EXAMS 03/27/2024, 12/16/2023, 12/11/2022, 10/14/2021. MAMMOGRAPHY TECHNIQUE: 2D and 3D (tomosynthesis) digital mammographic views obtained, with additional images as needed for full coverage. Current study was also evaluated with a Computer Aided Detection (CAD) system. DENSITY B. There are scattered areas of fibroglandular density. MAMMOGRAPHY FINDINGS Bilateral: Surgical clips present. Benign-appearing post-surgical changes and calcifications noted. There are no suspicious masses, calcifications, or other findings in the breast. IMPRESSION: * No evidence of malignancy with benign findings. RECOMMENDATIONS Bilateral * Annual screening mammography. OVERALL ASSESSMENT CATEGORY BI-RADS-2: Benign. [employer] recommends annual screening mammography beginning at age 40 for women with average risk of breast cancer. ELECTRONICALLY SIGNED: Drew Qiu M.D. on 12/25/2024 at 09:57:47 PM PT Interpreting Station ID: [id number]
== END ==
LOC: MAMMO 14:30
PROVIDERS: PCP Internal Medicine; Referring Provider Internal Medicine; Visit Provider Internal Medicine
DX: Z12.31 Encounter for screening mammogram for malignant neoplasm of breast (principal); R92.1 Mammographic calcification found on diagnostic imaging of breast; Z85.3 Personal history of malignant neoplasm of breast; Z80.3 Family history of malignant neoplasm of breast
CPT/HCPCS: 77063; 77067